=== PATIENT | female | born 1995 | race Caucasian/White ===

== ENCOUNTER 2020-10-30 12:58 | Emergency (ER) | payer BC, OTHER ==
[2020-10-30] MEDS ORDERED: Ibuprofen 200 MG TAB ONE (13:48)
--- NOTE | 2020-10-30 14:16 | RAD ---
RADIOGRAPH LEFT ANKLE 3 VIEWS: DATE: 10/30/2020 HISTORY: 25-year-old female with acute traumatic ankle pain after fall FINDINGS: Incidentally, there is a nondisplaced transverse fracture at base of fifth metatarsal. Ankle mortise is congruent. There is no evidence of ankle fracture. There is no subluxation or dislocation. Talar dome is maintained. IMPRESSION: 1. Acute, traumatic, nondisplaced dancer's avulsion fracture at base of fifth metatarsal. 2. Normal ankle
--- NOTE | 2020-10-30 14:19 | RAD ---
Radiograph left foot 3 views: 10/30/2020 HISTORY: 25-year-old female with acute traumatic left foot pain FINDINGS: Transversely oriented nondisplaced fracture at base of fifth metatarsal reaching the fifth MTP joint surface. No dislocation IMPRESSION: Acute, traumatic, nondisplaced dancers avulsion fracture of fifth metatarsal.
== END 2020-10-30 15:09 | disposition home or self-care (01) ==
LOC: ERS 12:58
DX: S92.355A Nondisplaced fracture of fifth metatarsal bone, left foot, initial encounter for closed fracture (principal); W18.09XA Striking against other object with subsequent fall, initial encounter; Y93.01 Activity, walking, marching and hiking